=== PATIENT | male | born 1985 | race American Indian/Alaskan Native ===

== ENCOUNTER 2016-06-18 16:28 | Emergency (ER) | payer BC, OTHER ==
[2016-06-18 16:36] VITALS: BP 172/93; PULSE 109; RESP 20; TEMP 98.9; O2SAT 98
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
== END 2016-06-18 17:29 | disposition home or self-care (01) ==
LOC: H.ER 16:28 → SUPCPDRO 16:28 → H.ER 17:29
DX: S01.112A Laceration without foreign body of left eyelid and periocular area, initial encounter (principal); W01.0XXA Fall on same level from slipping, tripping and stumbling without subsequent striking against object, initial encounter

== ENCOUNTER 2016-09-19 07:44 | Emergency (ER) | payer OTHER ==
[2016-09-19 07:54] VITALS: BP 147/86; PULSE 76; RESP 20; TEMP 98.2; O2SAT 99
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
--- NOTE | 2016-09-19 14:18 | RAD ---
PROCEDURE: Cervical Spine Radiographs. HISTORY: Pain. COMPARISON: None. FINDINGS: BONES: Alignment maintained. No fracture. Dens Intact. Reversal of the anatomic lordosis with kyphosis, mild DISC SPACES: Normal. SOFT TISSUES: Normal. No prevertebral soft tissue swelling. OTHER FINDINGS: None. IMPRESSION: No acute findings related to/accounting for the clinical presentation.
== END 2016-09-19 08:55 | disposition home or self-care (01) ==
LOC: H.ER 07:44
DX: S16.1XXA Strain of muscle, fascia and tendon at neck level, initial encounter (principal); V43.52XA Car driver injured in collision with other type car in traffic accident, initial encounter; Y92.410 Unspecified street and highway as the place of occurrence of the external cause
CPT/HCPCS: 72050; 96372; 99283; J1885